=== PATIENT | female | born 1970 | race Caucasian/White ===

== ENCOUNTER 2022-05-14 05:35 | Outpatient (CLI) | payer BC ==
[~2022-05-14] VITALS: Ht 175.3 cm; Wt 78.6 kg
== END 2022-05-16 12:35 | disposition home or self-care (01) ==
LOC: PREOP 05:35
PROVIDERS: ATTEND Obstetrics & Gynecology
DX: Z01.818 Encounter for other preprocedural examination (principal)

== ENCOUNTER 2022-05-21 05:50 | Day surgery (SDC) | payer BC ==
[2022-05-21] VITALS (12 sets, daily range): BP systolic 113–146; BP diastolic 61–93
[~2022-05-21] VITALS: Ht 175.3 cm; Wt 78.6 kg
[2022-05-21] MEDS ORDERED: ONDANSETRON 4 MG/2 ML (SDV) Z0FRAN ONE (06:58)
[2022-05-21] MEDS ORDERED: SEVOFLURANE (ULTANE) 15 ML INHAL SOLN ONE ×3 (06:58→09:29)
[2022-05-21] MEDS ORDERED: proPOfol 200 MG/20 ML (DIPRIVAN) VIAL IV ONE (06:58)
[2022-05-21] MEDS ORDERED: MIDAZOLAM 2 MG/2 ML (VERSED) VIAL ONE (06:58)
[2022-05-21] MEDS ORDERED: LIDOCAINE PF 2% 5 ML (XYLOCAINE) VIAL ONE (06:58)
[2022-05-21] MEDS ORDERED: fentaNYL INJ 100 MCG/2 ML AMP ONE ×2 (06:58→08:33)
[2022-05-21] MEDS ORDERED: ceFAZolin 2 GM IV Premixed 50 ML IV ONE (07:00)
[2022-05-21] MEDS ORDERED: metroNIDAZOLE 500MG/100ML IVPB 100 ML IV ONE (07:00)
[2022-05-21] MEDS: LACTATED RINGERS 1,000 ML IV PRN ×2 (07:02→08:42)
[2022-05-21] MEDS ORDERED: SIMETHICONE 80 MG (MYLICON) CHEW PO PRN (07:15)
[2022-05-21] MEDS ORDERED: ZOLPIDEM 5 MG (AMBIEN) TAB PO PRN (07:15)
[2022-05-21] MEDS ORDERED: ONDANSETRON 4 MG/2 ML (SDV) Z0FRAN IV PRN (07:15)
[2022-05-21] MEDS ORDERED: HYDROcodone/APAP 7.5 MG/325 MG (LORTAB, LORCET PLUS) TABLET PO PRN (07:15)
[2022-05-21] MEDS ORDERED: HYDROmorphone 2 MG/ML VIAL (DILAUDID) IV PRN (07:15)
[2022-05-21] MEDS ORDERED: DOCUSATE SODIUM 100 MG (COLACE) CAP PO PRN (07:15)
[2022-05-21] MEDS ORDERED: CHLORASEPTIC LOZENGE MM PRN (07:15)
[2022-05-21] MEDS ORDERED: ANTACID SUSP 30 ML UDC (MYLANTA) PO PRN (07:15)
--- NOTE | 2022-05-21 07:15 | Progress Note-Pre Operative ---
Pre-Operative Progress Note H&P Reviewed The H&P was reviewed, patient examined and no changes noted. Date Seen by Provider: May 21, 2022 Time Seen by Provider: 07:05 Date H&P Reviewed: May 21, 2022 Time H&P Reviewed: 07:05 Pre-Operative Diagnosis: POP, Posterior colporraphy EDINSON CORBETT DO May 21, 2022 07:15
[2022-05-21] MEDS ORDERED: BUPIVACAINE 0.25% 30 ML (SENSORCAINE) VIAL ONE (07:16)
[2022-05-21] MEDS ORDERED: ESTROGENS CONJ. CREAM 30 GM (PREMARIN) TUBE ONE (07:17)
[2022-05-21] MEDS ORDERED: VASOPRESSIN INJECTION 20 UNIT/ML VIAL ONE (07:17)
[2022-05-21] MEDS ORDERED: NS (IVPB) 100 ML ONE (07:17)
--- NOTE | 2022-05-21 07:19 | Discharge Inst-Women's Service ---
Discharge Inst-Women's Serv Depart Medication/Instructions New, Converted or Re-Newed RX: Transmitted to Pharmacy Problems Reviewed?: Yes Consults/Follow Up Additional Follow Up: Yes Orders/Referrals Dr. Corbett in 7-10 days and in 8 weeks Activity Activity: Activity as Tolerated Driving Instructions: No Driving for 1 Week NO SMOKING: NO SMOKING Nothing Inside Vagina: No Douching, No [place], No Tampons Diet Discharge Diet: No Restrictions Symptoms to Report to : Bleeding Excessive, Pain Increased, Fever Over 101 Degrees F, Vaginal Bleeding Increase, Questions/Concerns For Any Problems or Questions: Contact Your Physician EDINSON CORBETT DO May 21, 2022 07:19
[2022-05-21] MEDS ORDERED: IBUP-844 PO (07:21)
[2022-05-21] MEDS ORDERED: DOCU100C37 PO (07:21)
[2022-05-21] MEDS ORDERED: HYDR-34 PO (07:21)
[2022-05-21] MEDS ORDERED: SIME80TA16 PO (07:21)
[2022-05-21 07:24] LABS: BASOPHILS % (AUTO) 1 % (0-10); EOSINOPHILS # (AUTO) 0.2 10^3/uL (0.0-0.3); EOSINOPHILS % (AUTO) 3 % (0-10); HEMATOCRIT 42 % (35-52); HEMOGLOBIN 14.7 g/dL (11.5-16.0); LYMPHOCYTES # (AUTO) 1.3 10^3/uL (1.0-4.0); LYMPHOCYTES % (AUTO) 24 % (12-44); MEAN CORPUSCULAR HEMOGLOBIN 35 pg (25-34); MEAN CORPUSCULAR HGB CONC 35 g/dL (32-36); MEAN CORPUSCULAR VOLUME 99 fL (80-99); MEAN PLATELET VOLUME 9.1 fL (9.0-12.2); MONOCYTES # (AUTO) 0.4 10^3/uL (0.0-1.0); MONOCYTES % (AUTO) 7 % (0-12); NEUTROPHILS # (AUTO) 3.4 10^3/uL (1.8-7.8); NEUTROPHILS % (AUTO) 65 % (42-75); PLATELET COUNT 236 10^3/uL (130-400); WHITE BLOOD COUNT 5.2 10^3/uL (4.3-11.0)
--- NOTE | 2022-05-21 07:33 | History & Physical-Surgical ---
HPO-Surgical History of Present Illness Chief Complaint: POP Diagnosis/Surgical Indication: POP, Posterior colporraphy Procedure: ROBOTIC ASSISTED TOTAL LAPAROSCOPIC HYSTERECTOMY WITH BILATERAL SALPINGO OOPHERECTOMY POSTERIOR COLPORRHAPY Date of Surgery: May 21, 2022 Allergies and Home Medications Allergies Coded Allergies: No Known Drug Allergies (Unverified , 05/16/22) Patient Home Medication List Home Medication List Reviewed: Yes Docusate Sodium (Docusate Sodium) 100 Mg Capsule, 100 MG PO BID PRN for CONSTIPATION-1ST LINE Prescribed by: EDINSON CORBETT on 05/21/22720 Last Action: Reviewed Hydrocodone Bit/Acetaminophen (HYDROcodone/APAP 7.5/325 TAB) 1 Ea Tablet, 1-2 EA PO Q6HR PRN for PAIN-MODERATE (5-7) Prescribed by: EDINSON CORBETT on 05/21/22720 Last Action: Reviewed Ibuprofen (Ibu) 600 Mg Tablet, 600 MG PO Q6HR Prescribed by: EDINSON CORBETT on 05/21/22720 Last Action: Reviewed Simethicone (Simethicone) 80 Mg Tab.chew, 40 MG PO TID PRN for INDIGESTION 2ND LINE Prescribed by: EIDNSON CORBETT on 05/21/22720 Last Action: Reviewed Past Xikmmmt-Tuihlv-Onpjwf Hx Patient Social History Smoking Status: Current Everyday Smoker 2nd Hand Smoke Exposure: Yes Recent Hopitalizations: No Seasonal Allergies Seasonal Allergies: No Surgeries Yes (KIDNEY/BLADDER SX AT 8 YEARS OLD) Tubal Ligation Respiratory No Currently Using CPAP: No Currently Using BIPAP: No Cardiovascular No Neurological No Reproductive System Sexually Transmitted Disease: No HIV/AIDS: No Female Reproductive Disorders: Denies OUTPATIENT CODER History: Tubal Ligation Genitourinary Yes (KID/BLADDER SX (URETER:?) AT 8 YEARS OLD) Gastrointestinal Yes (OCCASIONALLY) Gastroesophageal Reflux Musculoskeletal Yes (HANDS) Arthritis Endocrine History of Endocrine Disorders: No HEENT History of HEENT Disorders: No Cancer No Psychosocial History of Psychiatric Problem: No Integumentary History of Skin or Integumenta: No Blood Transfusions History of Blood Disorders: No Exam Vital Signs Vital Signs 05/21/22 07:07 Temp 36.7 Pulse 86 Resp 18 B/P (MAP) 123/82 (96) Pulse Ox 98 O2 Delivery Room Air Capillary Refill : Labs Laboratory Tests Test 05/21/22 06:45 Range/Units White Blood Count 5.2 4.3-11.0 10^3/uL Red Blood Count 4.26 3.80-5.11 10^6/uL Hemoglobin 14.7 11.5-16.0 g/dL Hematocrit 42 35-52 % Mean Corpuscular Volume 99 80-99 fL Mean Corpuscular Hemoglobin 35 H 25-34 pg Mean Corpuscular Hemoglobin Concent 35 32-36 g/dL Red Cell Distribution Width 12.1 10.0-14.5 % Platelet Count 236 130-400 10^3/uL Mean Platelet Volume 9.1 9.0-12.2 fL Immature Granulocyte % (Auto) 0 % Neutrophils (%) (Auto) 65 42-75 % Lymphocytes (%) (Auto) 24 12-44 % Monocytes (%) (Auto) 7 0-12 % Eosinophils (%) (Auto) 3 0-10 % Basophils (%) (Auto) 1 0-10 % Neutrophils # (Auto) 3.4 1.8-7.8 10^3/uL Lymphocytes # (Auto) 1.3 1.0-4.0 10^3/uL Monocytes # (Auto) 0.4 0.0-1.0 10^3/uL Eosinophils # (Auto) 0.2 0.0-0.3 10^3/uL Basophils # (Auto) 0.0 0.0-0.1 10^3/uL Immature Granulocyte # (Auto) 0.0 0.0-0.1 10^3/uL General Appearance: Alert, Oriented X3 HEENT: Atraumatic Respiratory: Clear to Auscultation Cardiovascular: Regular Rate Abdominal: Normal Bowel Sounds Neuro: Normal Gait Psych/Mental Status: Mental Status NL Assessment/Plan Assessment and Plan POP Rectocele grade 3 Admission Diagnosis Admission Status: Observation EDINSON CORBETT DO May 21, 2022 07:33
[2022-05-21] MEDS ORDERED: ROCURONIUM 50 MG/5 ML (ZEMURON) VIAL IV ONE (08:04)
[2022-05-21] MEDS ORDERED: morphine INJ 10 MG/ML 1ML (SYR OR VIAL) ONE (09:50)
[2022-05-21] MEDS ORDERED: KETOROLAC 30 MG/ML VIAL ONE (09:50)
[2022-05-21] MEDS: KETOROLAC 30 MG/ML VIAL IVP PRN ×2 (09:51→16:53)
[2022-05-21] MEDS ORDERED: ONDANSETRON 4 MG/2 ML (SDV) Z0FRAN IVP PRN (10:00)
[2022-05-21] MEDS ORDERED: fentaNYL INJ 100 MCG/2 ML AMP IVP ONE (10:00)
[2022-05-21] MEDS ORDERED: morphine INJ 10 MG/ML 1ML (SYR OR VIAL) IVP ONE (10:00)
[2022-05-21] MEDS ORDERED: MEPERIDINE (DEMEROL) INJ 50 MG/ML IVP ONE (10:00)
[2022-05-21] MEDS ORDERED: MEPERIDINE (DEMEROL) INJ 50 MG/ML ONE (10:01)
[2022-05-21] MEDS ORDERED: CEPACOL SORE THROAT-COUGH LOZENGE PO PRN (11:15)
[2022-05-21] MEDS: LACTATED RINGERS 1,000 ML IV SCH ×2 (11:51→20:05)
--- NOTE | 2022-05-21 14:12 | OPERATIVE REPORT ---
DATE OF SERVICE: PREOPERATIVE DIAGNOSES: 1. A 51-year-old female with pelvic organ prolapse. 2. Grade 3 rectocele. POSTOPERATIVE DIAGNOSES: 1. A 51-year-old female with pelvic organ prolapse. 2. Grade 3 rectocele. PROCEDURE: Robotic-assisted total laparoscopic hysterectomy with bilateral salpingo-oophorectomy, lysis of adhesions and posterior colporrhaphy with perineoplasty. SURGEON: Gerry Robb DO [employer]: Ruba Nick DNP, was necessary for manipulation and retraction throughout the procedure. ANESTHESIA: General endotracheal. ESTIMATED BLOOD LOSS: 50 mL. URINE OUTPUT: 50 mL clear at the end of the procedure. FLUIDS: 1500 mL lactated Ringer's solution. FINDINGS: Significant rectocele protruding from the vaginal introitus a grade III, grossly normal-appearing cervix, vagina, bilateral ovaries and uterus. Extensive omental adhesions of the anterior abdominal wall extending to the lower abdomen. SPECIMEN SENT: Uterus, bilateral ovaries. INDICATIONS FOR PROCEDURE: This is a 51-year-old female is a patient who had sought care in my office for concerns with significant prolapse and having difficulties with defecation. I discussed with the patient her prolapse is not necessarily an emergent issue, but for quality of life we do offer repair of that in the form of colporrhaphy and suspension procedures with a hysterectomy. Risks of the procedure were discussed with the patient in detail including risk of bleeding, infection, damage to surrounding structures including, but not limited to bowel, bladder, ureter, kidneys, possible need for reoperation, postoperative complications that may occur, recovery timeframe, risk from anesthesia and even . After everything was discussed with the patient in detail, consent was obtained in the preoperative area, the patient was taken to the operating room. OPERATIVE REPORT IN DETAIL: Once in the operating room, general anesthesia was found to be adequate, placed in dorsal lithotomy position, prepped and draped in normal sterile fashion. Timeout was performed. Torres catheter was placed using sterile technique. A weighted speculum inserted to the patient's vagina. Right angle retractor was used to visualize the cervix and 0 Vicryl suture was then placed through the anterior lip of the cervix using my retraction. I then placed a Marisa uterine manipulator with 8 cm manipulator tip and a 3 cm colpotomy ring. Once the tip within the uterus, I deployed the balloon. A colpotomy ring was advanced around the vaginal fornix, excellent manipulation is noted after doing this. I then performed change of gloves and removed all the instruments from the patient's vagina. I then performed a change of gloves and took my attention to the abdomen where subcostally at the midclavicular line, I introduced the Veress needle until intraperitoneal placement was confirmed using saline drop test. An opening pressure of 5 mmHg. I proceeded to measure pressure of 15 mmHg, at which point, I made an infraumbilical 8 mm incision with a knife and directed a blunt da Karan camera trocar through the incision, intraperitoneal placement was confirmed using the laparoscope. There was curtain of omental adhesions noted obscuring my view of the pelvis. I do have to do quite a bit of manipulation of the camera in order to get laterally to allow placement of my 2 lateral trocars needed for the robotic procedure. These were both 8 mm trocars were approximately 8 mm in diameter and 8 cm lateral to my infraumbilical trocar. Once both of these trocars were in place, I bring in the da Karan robot and docked in appropriate fashion placing the SynchroSeal device, left hand and monopolar sherry in the right hand. I began by taking down these curtain-like omental adhesions. This is difficult to do with the SynchroSeal device. Therefore, I switched to a vessel sealer. Once this was done, I am able to take down the adhesions. This approximately takes 35 to 40 minutes. I then am able to visualize the pelvic anatomy defined in my findings above. I first started the procedure by starting at the infundibulopelvic ligament, which I sealed and transected with the vessel sealer. I then grasped the round ligament, which I sealed and transected using vessel sealer. I then grasped the entire broad ligament using the vessel sealer down to the level of the lower uterine segment, at which point I the anterior and posterior leaflet. The anterior leaflet is dissected around to the anterior vaginal fornix and posterior leaflets was taken around to the posterior vaginal fornix. This allows me to skeletonize the uterine vessels laterally, which I sealed and transected using the vessel sealer. This was done bilaterally. I then created a colpotomy at 12 o'clock position using monopolar sherry and took this circumferentially around the vaginal fornix amputating the cervix away from the vagina. The uterus, ovaries then removed through the vagina. I then closed the vaginal cuff using 2-0 V-Loc in a running fashion, after which there was no active bleeding noted from any of my dissection planes. I then undocked the da Karan robot and proceeded with remainder of the case laparoscopically. I copiously irrigated the pelvis using normal saline. Once again, there was directly noted from any of my dissection planes. I placed Surgiflo hemostatic agent over all my planes of dissection. I had the patient taken out of steep Trendelenburg where I released insufflation and removed the lateral trocars under regulation laparoscope. The infraumbilical trocar was left in place to release the remainder of the insufflation and to introduce 10 mL of 0.25% Marcaine into the peritoneal cavity for postoperative pain management. I then removed this trocar as well. The skin reapproximated using 4-0 Monocryl in interrupted subcuticular stitches. Dermabond was applied to incision and Band-Aids were placed over the incisions as well. I then took my attention back to the pelvis where I infiltrated the margins of the remaining rectocele using vasopressin, a concentration of 20 units in 100 mL of normal saline. Once all of the subcutaneous and submucous tissue is infiltrated with the vasopressin, I began by making an incision the shape of a triangle upside down on the perineal body and excising this tissue, I then took this undermining down the midline of the rectocele to the apex of the rectocele at the top of the vagina. I then make an incision down the margin of the rectocele and dissect the underlying rectovaginal fascia off of the rectocele itself to the lateral margins of the rectocele. This excess tissue was then trimmed. I then reapproximated the vaginal mucosa, submucosa, and rectovaginal fascia in one running locked fashion using 3-0 Vicryl suture in running locked fashion to the level of the mucocutaneous junction. I then placed two crown stitches using 0 Vicryl suture to reapproximate the perineal body and then reapproximating the skin using 4-0 Monocryl in a running subcuticular. The vagina was then packed using Premarin-soaked vaginal packing. Torres catheter was left in place. The patient tolerated the procedure well and was taken to recovery area in stable condition. Lap and sponge counts were correct at the end of the procedure. Instrument counts correct as well. Job ID: [id number] DocumentID: [id number] Dictated Date: 05/21/2022 10:35:17 Business Systems Advisor Date: 05/21/2022 14:11:15 Dictated By: DO EDITH ALLEN
[2022-05-22] MEDS: KETOROLAC 30 MG/ML VIAL IVP PRN ×2 (01:00→07:51)
[2022-05-22 01:01] VITALS: BP 112/59
[2022-05-22 04:01] VITALS: BP 110/62
[2022-05-22] MEDS: LACTATED RINGERS 1,000 ML IV SCH (04:01)
[2022-05-22 07:54] VITALS: BP 130/85
--- NOTE | 2022-05-22 12:54 | Anesthesia-General Post-Op ---
General Post Op Complications Complications None Follow Up Care/Instructions Patient Instructions None needed. Anesthesia/Patient Condition Patient Condition Patient discharged prior to evaluation. Chart reviewed. no apparent adverse anesthesia problems noted. No complications reported per nursing. ALETHEA KEITA CRNA May 22, 2022 12:54
[2022-05-26] MEDS ORDERED: IBUPROFEN 600 MG (MOTRIN) TAB PO SCH (12:00)
== END 2022-05-22 11:15 ==
LOC: SDC 05:50 → WS 10:56 → SDC 05-22 11:15
PROVIDERS: ATTEND Obstetrics & Gynecology
DX: D25.2 Subserosal leiomyoma of uterus (principal); N84.1 Polyp of cervix uteri; N81.3 Complete uterovaginal prolapse; N81.89 Other female genital prolapse; F17.210 Nicotine dependence, cigarettes, uncomplicated
CPT/HCPCS: 36415; 84703; 85025; 86850; 86900; 86901; 87081; 94664

== ENCOUNTER → 2023-08-26 | Outpatient (CLI) | payer BC ==
[~2023-08-26] MED LIST: DOCU100C37 PO; HYDR-34 PO; IBUP-844 PO; SIME80TA16 PO
--- NOTE | 2023-08-26 15:08 | Diagnostic Imaging Report ---
INDICATION: Routine screening. COMPARISON: No prior mammograms are available for comparison. This is a baseline study. TECHNIQUE: 2D and 3D bilateral screening mammography was performed with CAD. FINDINGS: Both breasts are heterogeneously dense, limiting the sensitivity of mammography. No mass or malignant-appearing microcalcifications are identified. The axillae are unremarkable. IMPRESSION: No mammographic features suspicious for malignancy are identified. ACR BI-RADS Category 1: Negative. Result letter will be mailed to the patient. Note: At least 10% of breast cancer is not imaged by mammography. Dictated by: Dictated on workstation # [id number]
== END ==
LOC: RAD 09:59
PROVIDERS: ATTEND Nurse Practitioner Women's Health
DX: Z12.31 Encounter for screening mammogram for malignant neoplasm of breast (principal)
CPT/HCPCS: 77063; 77067